=== PATIENT | male | born 1980 | race Caucasian/White ===

== ENCOUNTER 2024-01-30 18:25 | Emergency (ER) | payer SELFPAY ==
[2024-01-30 18:26] VITALS: BP 155/97
[2024-01-30 18:42] LABS: % Basophils 0.8 % (0-2); % Eosinophils 0.6 % (0-6); % Immature Granulocytes 0.2 % (0-0.5); % Lymphocytes 18.8 % (20.5-51.1); % Monocytes 12.8 % (1.7-9.3); % Neutrophils 66.8 % (42.2-75.2); Absolute Basophils 0.1 10^3/uL (0-0.2); Absolute Eosinophils 0.1 10^3/uL (0-0.7); Absolute Lymphocytes 2.7 10^3/uL (1.2-3.4); Absolute Monocytes 1.8 10^3/uL (0.1-0.6); Absolute Neutrophils 9.6 10^3/uL (1.4-6.5); Hemoglobin 14.8 g/dL (13.0-18.0); Mean Corp Hgb Conc. 36.1 g/dL (33.0-37.0); Mean Corpuscular Hgb 30.8 pg (27.0-31.0); Mean Corpuscular Volume 85.4 fL (80.0-94.0); Mean Platelet Volume 11.4 fL (7.4-10.4); Nucleated Red Blood Cells % 0 % (-); Platelet Count 190 10^3/uL (130-400); Red Cell Dist. Width 12.1 % (11.5-14.5); White Blood Cell Count 14.3 10^3/uL (4.8-10.8)
[2024-01-30 19:13] LABS: ALT (SGPT) 19 U/L (0-50); AST (SGOT) 25 U/L (17-59); Alkaline Phosphatase 50 U/L (38-126); Blood Urea Nitrogen 17 mg/dl (9-20); Carbon Dioxide 23 mmol/L (22-30); Chloride 103 mmol/L (98-107); Glucose 95 mg/dl (70-99); Potassium 4.1 mmol/L (3.5-5.1); Sodium 138 mmol/L (135-145); Total Bilirubin 1.2 mg/dl (0.2-1.3); Total Protein 7.5 g/dl (6.3-8.2); eGFR > 60.00
--- NOTE | 2024-01-30 19:57 | ED.GENMED ---
History of Present Illness
General
Chief Complaint: Skin Surface Trauma
Source: patient
Exam Limitations: none
Time Seen by Provider: 01/30/24 19:28
Nursing documentation reviewed up to this point in time: agreed with
History of Present Illness
History of Present Illness:
Patient is a 43-year-old male who presents to the ER complaining of redness and swelling to right elbow. Patient was working with a wrench and hit his right elbow on a piece of metal. He reports the metal did puncture his elbow area he woke up at
330 this morning with discomfort to right elbow along with redness and swelling. He denies any fever chills. His last tetanus was 1 year ago. He is right-hand dominant
Past History
Past History
ED Past Medical History: None
Social History
Personal: Single
Living: with family
Employment: Employed
Review of Systems
Review of Systems
Allergies reviewed?: Yes
All Other Systems: ROS reviewed and negative except as documented in HPI and ROS
Constitutional: Reports no symptoms
Musculoskeletal: Reports other (Right elbow swelling redness warmth)
Skin: Reports no symptoms
Neurological: Reports no symptoms
Psychiatric: Reports no symptoms
Phy Exam
General Physical Exam
General Presentation: no apparent distress
General age: appears stated age
General Skin: warm and dry
General Habitus: normal
General Mental: alert
General Hydration: appears well hydrated
Neurological Exam
Neurological Exam: alert and oriented x3
Musculoskeletal Exam
Musculoskeletal Exam: other (Right upper extremity with strong pulses patient with obvious swelling to right posterior elbow area with warmth and erythema nontender able to flex and extend)
Skin Exam
Skin Exam: normal color and warm/dry
Psychiatric Exam
Psychiatric Exam: normal mood/affect
Course
Orders/Labs/Results
Orders:
Orders
01/30/24 18:34
Complete Blood Count/With Diff Urgent
Comprehensive Metabolic Panel Urgent
01/30/24 20:11
Cephalexin Monohydrate [Keflex] 500 mg PO NOW STA
Abnormal Lab Results
01/30/24
18:34
WBC 14.3 H 10^3/uL
(4.8-10.8)
MPV 11.4 H fL
(7.4-10.4)
Absolute Neuts (auto) 9.6 H 10^3/uL
(1.4-6.5)
Absolute Monos (auto) 1.8 H 10^3/uL
(0.1-0.6)
Lymphocytes % 18.8 L %
(20.5-51.1)
Monocytes % 12.8 H %
(1.7-9.3)
01/30/24 18:34
01/30/24 18:34
Vital Signs
Initial and Last Documented VS:
Initial Vital Signs
Temp Pulse Resp BP Pulse Ox
99.5 F 95 20 155/97 97
01/30/24 18:26 01/30/24 18:26 01/30/24 18:26 01/30/24 18:26 01/30/24 18:26
Last Documented Vital Signs
Temp Pulse Resp BP Pulse Ox
99.5 F 95 20 155/97 97
01/30/24 18:26 01/30/24 18:26 01/30/24 18:26 01/30/24 18:26 01/30/24 18:26
MDM/Problems Addressed
Differential Diagnosis Includes:
not limited to: Olecranon bursitis, cellulitis, less likely osteomyelitis
MDM/Problems Addressed:
Patient is a 43-year-old male who sustained a puncture wound to his right posterior elbow 2 days ago woke up at 3 in the morning with pain redness swelling. He denies any fever chills is nontoxic. His white count is mildly elevated 14,000. He
does however have good range of motion in the joint with no obvious effusion. Patient is well-appearing in no acute distress. Patient had similar episode of a puncture wound to his left knee and was treated with Keflex in the past in 2022 and that
improved his. Evaluated by ED physician will DC on 500 mg every 6 hours however discussed the importance of returning to the ER if any worsening of symptoms and close outpatient follow-up.
*Pulse Oximetry
Patient hypoxic: no
*Critical Care Note
Total Time (30-74mins, 75-104mins- exclusive of procedures): Not Applicable
ED Attending Note
-
Portions of this chart may have been created with voice recognition software.� Occasional wrong word or��sound alike� substitutions may have occurred due to the inherent limitations of voice recognition software.
Discharge Plan
Departure
Patient Disposition: Home (Routine Discharge)
Date of Disposition: 01/30/24
Time of Disposition: 20:15
Patient with high blood pressure during this ER visit?: No
Condition: Fair
Covid-19: Not Applicable
Discharge Problem:
Cellulitis
Instructions: Cellulitis (Skin Infection), Adult ED, BLOOD PRESSURE
Prescriptions:
New
cephalexin 500 mg capsule
500 mg PO QID Qty: 28 0RF
No Action
cyclobenzaprine 10 MG tablet
10 mg PO TIDPRN PRN (Reason: muscle tightness/spasm) Qty: 30 0RF
cephalexin 500 mg capsule
500 mg PO QID 3 Days Qty: 12 0RF
Referrals:
UNKNOWN - PT DOES,NOT KNOW [Family Provider] -
Activity Restrictions/Additional Instructions:
As discussed a prescription for Keflex was sent to your pharmacy take as directed. You were given the first here is here in the ER.
Follow-up closely with your family doctor in the next 2 days for reevaluation. Return if any worsening of symptoms of increased pain swelling redness drainage fevers chills red streaking.
Interventions
Interventions:
*Risk Screen - Suicide Last Done: 01/30/24 18:26
*General Assessment Last Done: 01/30/24 18:26
*Neglect/Abuse Screening Last Done: 01/30/24 18:26
Discharge Date and Time
Print Language: MALAY
[2024-01-30] MEDS: KEFLEX 500 MG PO (20:22)
== END 2024-01-30 20:28 | disposition home or self-care (01) ==
LOC: EMR 18:25
PROVIDERS: Emergency Medicine; EMERGENCY PHYSICIAN Emergency Medicine
DX: L03.113 Cellulitis of right upper limb (principal); S51.031A Puncture wound without foreign body of right elbow, initial encounter; W22.8XXA Striking against or struck by other objects, initial encounter
CPT/HCPCS: 99283; 80053; 85025